=== PATIENT | male | born 1980 | race Asian ===

== ENCOUNTER 2024-05-05 14:50 | Outpatient (CLI) | payer BC | END 2024-05-05 14:51 | disposition home or self-care (01) | LOC: SCSMRI 14:50 | PROVIDERS: ATTEND Student in an Organized Health Care Education/Training Program | DX: M51.16 Intervertebral disc disorders with radiculopathy, lumbar region (principal); M51.17 Intervertebral disc disorders with radiculopathy, lumbosacral region; M47.26 Other spondylosis with radiculopathy, lumbar region; M47.27 Other spondylosis with radiculopathy, lumbosacral region | CPT/HCPCS: 72148 ==